=== PATIENT | female | born 1960 | race Caucasian/White ===

== ENCOUNTER 2016-10-19 06:10 | Emergency (ER) | payer OTHER ==
[~2016-10-19] VITALS: Ht 165.1 cm; Wt 49.9 kg
[2016-10-19 06:36] VITALS: BP 138/88
--- NOTE | 2016-10-19 07:43 | ED THROAT/DENTAL COMPLAINT ---
History of Present Illness General Chief Complaint: Sore Throat, Dental Pain Stated Complaint: "PER PT NEED STREP CULTURE" Source: patient Exam Limitations: no limitations Vital Signs & Intake/Output Vital Signs & Intake/Output Vital Signs Date Time Temp Pulse Resp B/P B/P Pulse O2 O2 Flow FiO2 Mean Ox Delivery Rate 10/19 0636 98.1 76 20 138/88 98 Allergies Coded Allergies: NO KNOWN ALLERGIES (02/28/14) Reconcile Medications No Known Home Medications Triage Note: SORE THROAT SINCE YESTERDAY AFTERNOON. OVERNIGHT WORSE. COUGH, CLEAR PRODCTIVE Triage Nurses Notes Reviewed? yes Onset: Abrupt Duration: day(s): (2) Timing: multiple episodes today Injury Environment: home Severity: mild, moderate Associated Symptoms: NONE HPI: 56 year old female presents to the ER for chief complaint of sore throat for the past 2 days. She certainly started yesterday but got worse this morning. She was in the hospital visiting her new born grandchild in one to make sure she did not have strep. Denies any strep contacts. No fever no chills. She did not take anything for pain and does not want anything for pain. Past History Travel History Traveled to [place] past 21 day No Medical History Any Pertinent Medical History? none Surgical History Surgical History: non-contributory Psychosocial History Who do you live with Son What is your primary language [place] Family History Hx Contributory? No Review of Systems Review of Systems Constitutional: Denies: chills, fever. EENTM: Reports: throat pain. Respiratory: Denies: cough, short of breath. Cardiovascular: Denies: chest pain. GI: Reports: no symptoms. Genitourinary: Reports: no symptoms. Musculoskeletal: Reports: no symptoms. Skin: Reports: no symptoms. Neurological/Psychological: Reports: no symptoms. Hematologic/Endocrine: Denies: bruising, bleeding. Immunologic/Allergic: Reports: no symptoms. All Other Systems: Reviewed and Negative Physical Exam Physical Exam General Appearance: alert, awake, mild distress, thin Head: atraumatic, normal appearance Eyes: Bilateral: normal appearance, PERRL. Nose: normal inspection Mouth/Throat: PHARYNGEAL ERYTHEMA Neck: normal inspection, supple, full range of motion Cardiovascular/Respiratory: normal breath sounds, normal peripheral pulses Neurologic/Psych: no motor/sensory deficits, awake, alert, oriented x 3 Core Measures ACS in differential dx? No Severe Sepsis Present: No Septic Shock Present: No Progress Differential Diagnosis: strep pharyngitis, VIRAL PHARYNGITIS Plan of Care: Orders Procedure Date/time Status THROAT CULTURE W/QUICK STREP 10/19 612 Active PATIENT DOES NOT WANT ANYTHING FOR PAIN. WILL CALL BACK IF POSITIVE CULTURE. (LEONARDO RINALDI,OLIVER) Departure Departure Time of Disposition: 758 Disposition: HOME OR SELF CARE Condition: Stable Clinical Impression Primary Impression: Pharyngitis Referrals: OTILIA RINALDI,JAMMIE Whaley (PCP/Family) Additional Instructions: Take Motrin or Tylenol as needed for pain. Drink warm liquids, honey and lemon. Return as needed. You will get a call back if the strep culture is positive. Departure Forms: Customer Survey General Discharge Information Prescriptions: Current Visit Scripts No Known Home Medications
== END 2016-10-19 08:03 ==
LOC: ERH 06:10
DX: J02.9 Acute pharyngitis, unspecified (principal)